=== PATIENT | female | born 1990 | race African-American/Black ===

== ENCOUNTER 2018-02-10 16:20 | Emergency (ER) | payer MEDICARE, MEDICAID ==
[2018-02-10 16:54] VITALS: BP 129/82
--- NOTE | 2018-02-10 16:55 | ER Document Report ---
ED General - General Chief Complaint: Psych Problem Stated Complaint: PSYCH PROBLEM Time Seen by Provider: 02/10/18 16:44 Notes: 27-year-old female here with mother who states she has been out of her Cymbalta 60 mg and Ambien 10 mg for the past 2-3 weeks. She has had some recent deaths in the family and has been unable to sleep due to these deaths. She has also been unable to sleep due to being out of her medications. She does not have any physical complaints. She denies any SI HI hallucinations. Mother states they have been trying to get up with her PCP Dr. Elena however "he is never in the office"so they came here instead. TRAVEL OUTSIDE OF THE [place] IN LAST 30 DAYS: No - Related Data Allergies/Adverse Reactions: No Known Allergies Allergy (Verified 02/10/18 16:22) Past Medical History - Social History Smoking Status: Unknown if Ever Smoked Family History: None, Arthritis, DM, Hypertension, Malignancy Pulmonary Medical History: Reports: Hx Asthma, Hx Pneumonia Neurological Medical History: Reports: Hx Migraine Musculoskeltal Medical History: Reports Hx Arthritis, Reports Hx Musculoskeletal Trauma Psychiatric Medical History: Reports: Hx Anxiety, Hx Bipolar Disorder, Hx Depression - Immunizations Hx Diphtheria, Pertussis, Tetanus Vaccination: Yes Review of Systems - Review of Systems Notes: See history of present illness for pertinent positive review of systems; otherwise all review of systems have been reviewed and are negative Physical Exam - Vital signs Vitals: Temp Pulse Resp BP Pulse Ox 99.3 F 92 20 129/82 H 99 02/10/18 16:24 02/10/18 16:24 02/10/18 16:24 02/10/18 16:24 02/10/18 16:24 - Notes Notes: PHYSICAL EXAMINATION: GENERAL: Well-appearing and in no acute distress. HEAD: Atraumatic, normocephalic. EYES: Pupils equal round and reactive to light, extraocular movements intact, sclera anicteric, conjunctiva are normal. ENT: nares patent, oropharynx clear without exudates. Moist mucous membranes. NECK: Normal range of motion, supple without lymphadenopathy LUNGS: CTAB and equal. No wheezes rales or rhonchi. HEART: Regular rate and rhythm without murmurs ABDOMEN: Soft, no tenderness. No facial grimacing/wincing upon palpation. No guarding, no rebound. EXTREMITIES: Normal range of motion, no pitting edema. No cyanosis. NEUROLOGICAL: Cranial nerves grossly intact. Normal sensory/motor exams. PSYCH: Normal mood, normal affect. No SI HI hallucinations SKIN: Warm, Dry, normal turgor, no rashes or lesions noted Course - Re-evaluation Re-evalutation: 02/10/18 16:54 MEDICAL DECISION MAKING: The patient has received a medical screening exam There is no emergency medical condition identified today We will give a 7 day refill for her Cymbalta and Ambien Instructed follow-up PCP next day or few few days Patient/mother understands and agrees to the plan of care - Vital Signs Vital signs: Temp Pulse Resp BP Pulse Ox 99.3 F 92 20 129/82 H 99 02/10/18 16:24 02/10/18 16:24 02/10/18 16:24 02/10/18 16:24 02/10/18 16:24 Discharge - Discharge Clinical Impression: Medication refill Condition: Good Disposition: HOME, SELF-CARE Additional Instructions: You were seen in the emergency department at [facility]. You received a seven-day refill of her medications. You will need to see the PCP for further extended refills. If you were given any sedating medications, such as Ambien and Cymbalta, be sure not to operate heavy machinery (example - driving) and be sure you are not too sedated to walk appropriately. Please followup with your primary physician in the next few days for further management /evaluation. Please return to the emergency department for worsening of symptoms or any symptom that you deem to be concerning or life-threatening. Thank you for allowing us to be part of your care. Prescriptions: Zolpidem Tartrate [Ambien] 10 mg PO QHS #7 tablet Duloxetine HCl [Cymbalta] 60 mg PO DAILY #7 capsule.dr Referrals: MACARENA ELENA MD [Primary Care Provider] - Follow up in 3-5 days
== END 2018-02-10 16:55 | disposition home or self-care (01) ==
LOC: ER 16:20
DX: F99 Mental disorder, not otherwise specified (principal)
CPT/HCPCS: 99283

== ENCOUNTER 2018-07-21 12:07 | Emergency (ER) | payer MEDICARE, MEDICAID ==
--- NOTE | 2018-07-21 12:22 | ER Document Report ---
ED GI/ - General Chief Complaint: Vaginal Bleeding Stated Complaint: VAGINAL BLEEDING Time Seen by Provider: 07/21/18 12:20 Information source: Patient Notes: Chief complaint: Spotting History of complain:( obtained from----patient) 28 years old female never been before had regular menstrual cycle comes on around the 18th of the month. Had a last. June 16. Presents today with vaginal spotting since July 10. No profuse bleeding. Does not appear like a regular menstrual cycle for her. Denies any abdominal pain nausea vomiting or other constitutional symptoms. Onset: As above Duration: As above Severity: Mild to moderate Quality: None Context: Possible Exacerbating factor and relieving factors: None REVIEW OF SYSTEMS: CONSTITUTIONAL : Denies fever, chills, or sweats. Denies recent illness. EENT: Denies eye, ear, throat, or mouth pain or symptoms. Denies nasal or sinus congestion or discharge. Denies throat, tongue, or mouth swelling or difficulty swallowing. CARDIOVASCULAR: Denies chest pain. Denies palpitations or racing or irregular heart beat. Denies ankle edema. RESPIRATORY: Denies cough, cold, or chest congestion. Denies shortness of breath, difficulty breathing, or wheezing. GASTROINTESTINAL: Denies distention. Denies nausea, vomiting, or diarrhea. Denies blood in vomitus, stools, or per rectum. Denies black, tarry stools. Denies constipation. GENITOURINARY: Denies difficulty urinating, painful urination, burning, frequency, blood in urine, or discharge. FEMALE GENITOURINARY: Denies vaginal bleeding, heavy or abnormal periods, irregular periods. Denies vaginal discharge or odor. MUSCULOSKELETAL: Denies back or neck pain or stiffness. Denies joint pain or swelling. SKIN: Denies rash, lesions or sores. HEMATOLOGIC : Denies easy bruising or bleeding. LYMPHATIC: Denies swollen, enlarged glands. NEUROLOGICAL: Denies confusion or altered mental status. Denies passing out or loss of consciousness. Denies dizziness or lightheadedness. Denies headache. Denies weakness or paralysis or loss of use of either side. Denies problems with gait or speech. Denies sensory loss, numbness, or tingling. Denies seizures. PSYCHIATRIC: Denies anxiety or stress. Denies depression, suicidal ideation, or homicidal ideation. ALL OTHER SYSTEMS REVIEWED AND NEGATIVE. PHYSICAL EXAMINATION: GENERAL: Well-appearing, well-nourished and in no acute distress. HEAD: Atraumatic, normocephalic. EYES: Pupils equal round and reactive to light, extraocular movements intact, conjunctiva are normal. ENT: Nares patent, oropharynx clear without exudates. Moist mucous membranes. NECK: Normal range of motion, supple without lymphadenopathy LUNGS: Breath sounds clear to auscultation bilaterally and equal. No wheezes rales or rhonchi. HEART: Regular rate and rhythm without murmurs ABDOMEN: Soft, nontender, nondistended abdomen. No guarding, no rebound. No masses appreciated. Examination of genitals-deferred Musculoskeletal: Normal range of motion, no pitting or edema. No cyanosis. NEUROLOGICAL: Cranial nerves grossly intact. Normal speech, normal gait. Normal sensory, motor exams PSYCH: Normal mood, normal affect. SKIN: Warm, Dry, normal turgor, no rashes or lesions noted. Dictation was performed using [employer] voice recognition software TRAVEL OUTSIDE OF THE [place] IN LAST 30 DAYS: No - HPI Notes: 07/21/18 12:22 Dictated - Related Data Allergies/Adverse Reactions: No Known Allergies Allergy (Verified 07/21/18 12:09) Past Medical History - Social History Smoking Status: Current Every Day Smoker Cigarette use (# per day): No Smoking Education Provided: Yes Frequency of alcohol use: Rare Drug Abuse: None Lives with: Family Family History: None, Arthritis, DM, Hypertension, Malignancy Pulmonary Medical History: Reports: Hx Asthma, Hx Pneumonia Neurological Medical History: Reports: Hx Migraine Renal/ Medical History: Denies: Hx Peritoneal Dialysis Musculoskeletal Medical History: Reports Hx Arthritis, Reports Hx Musculoskeletal Trauma Psychiatric Medical History: Reports: Hx Anxiety, Hx Bipolar Disorder, Hx Depression - Immunizations Hx Diphtheria, Pertussis, Tetanus Vaccination: Yes Review of Systems - Review of Systems Notes: Dictated Physical Exam - Vital signs Vitals: Temp Pulse Resp BP Pulse Ox 98.2 F 101 H 16 130/82 H 99 07/21/18 12:11 07/21/18 12:11 07/21/18 12:11 07/21/18 12:11 07/21/18 12:11 - Notes Notes: Dictated Course - Re-evaluation Re-evalutation: 07/21/18 12:22 Dictated - Vital Signs Vital signs: Temp Pulse Resp BP Pulse Ox 98.2 F 101 H 16 130/82 H 99 07/21/18 12:11 07/21/18 12:11 07/21/18 12:11 07/21/18 12:11 07/21/18 12:11 Discharge - Discharge Referrals: MACARENA BRAVO MD [Primary Care Provider] - Follow up as needed
--- NOTE | 2018-07-21 12:43 | ER Document Report ---
ED General - General Chief Complaint: Vaginal Bleeding Stated Complaint: VAGINAL BLEEDING Time Seen by Provider: 07/21/18 12:20 Mode of Arrival: Ambulatory Information source: Patient Notes: 28-year-old female with depression presents via private vehicle with complaint of vaginal bleeding. Patient states that she has had vaginal bleeding for approximately 2 weeks. She denies any associated abdominal pain, vaginal discharge. She states that she goes through approximately 1 pad per day. She denies prior similar symptoms. She denies fever, chills, nausea, vomiting. She did state that she had one episode of diarrhea this morning. Patient's last normal period was June 16. She is sexually active but states that she uses condoms every time. She does not believe that she is currently. She is not passing clots. She denies any dizziness, shortness of breath, history of anemia. TRAVEL OUTSIDE OF THE [place] IN LAST 30 DAYS: No - HPI Onset: Other Onset/Duration: Persistent Quality of pain: No pain Severity: Mild Associated symptoms: denies: Chest pain, Fever, Nausea, Vomiting, Shortness of breath Exacerbated by: Denies Relieved by: Denies Similar symptoms previously: No Recently seen / treated by doctor: No - Related Data Allergies/Adverse Reactions: No Known Allergies Allergy (Verified 07/21/18 12:09) Past Medical History - General Information source: Patient - Social History Smoking Status: Current Every Day Smoker Cigarette use (# per day): Yes - 20 Smoking Education Provided: Yes - Smoking cessation counseling was provided for 4 minutes at the bedside Frequency of alcohol use: Rare Drug Abuse: None Lives with: Family Family History: None, Arthritis, DM, Hypertension, Malignancy Patient has suicidal ideation: No Patient has homicidal ideation: No Pulmonary Medical History: Reports: Hx Asthma, Hx Pneumonia Neurological Medical History: Reports: Hx Migraine Renal/ Medical History: Denies: Hx Peritoneal Dialysis Musculoskeletal Medical History: Reports Hx Arthritis, Reports Hx Musculoskeletal Trauma Psychiatric Medical History: Reports: Hx Anxiety, Hx Bipolar Disorder, Hx Depression - Immunizations Hx Diphtheria, Pertussis, Tetanus Vaccination: Yes Review of Systems - Review of Systems Notes: REVIEW OF SYSTEMS: CONSTITUTIONAL : Denies fever, chills, or sweats. Denies recent illness. Denies weight loss, recent hospitalizations. EENT: Denies visual changes, eye pain. Denies sore throat, oral lesions, difficulty swallowing. CARDIOVASCULAR: Denies chest pain. Denies palpitations. Denies lower extremity edema. RESPIRATORY: Denies cough. Denies shortness of breath, wheezing. GASTROINTESTINAL: Denies abdominal pain or distention. Denies nausea, vomiting , or diarrhea. Denies blood in vomitus, stools, or per rectum. Denies black, tarry stools. Denies constipation. GENITOURINARY: Denies difficulty urinating, painful urination, frequency, blood in urine, or vaginal discharge. MUSCULOSKELETAL: Denies back or neck pain or stiffness. Denies joint pain or swelling. SKIN: Denies rash, lesions or sores. HEMATOLOGIC : Denies easy bruising or bleeding. LYMPHATIC: Denies swollen glands. NEUROLOGICAL: Denies confusion or altered mental status. Denies loss of consciousness. Denies dizziness or lightheadedness. Denies headache. Denies weakness or paralysis. Denies problems difficulty with ambulation, slurred speech. Denies sensory loss, numbness, or tingling. Denies seizures. PSYCHIATRIC: Denies anxiety or stress. Denies depression, suicidal ideation, or homicidal ideation. Denies visual or auditory hallucinations. Physical Exam - Vital signs Vitals: Temp Pulse Resp BP Pulse Ox 98.2 F 101 H 16 130/82 H 99 07/21/18 12:11 07/21/18 12:11 07/21/18 12:11 07/21/18 12:11 07/21/18 12:11 - Notes Notes: PHYSICAL EXAMINATION: GENERAL: Well-appearing, well-nourished and in no acute distress. HEAD: Atraumatic, normocephalic. EYES: Pupils equal round and reactive to light, extraocular movements intact, conjunctiva are normal. ENT: Nares patent, oropharynx clear without exudates. Moist mucous membranes. NECK: Normal range of motion, supple without lymphadenopathy LUNGS: Breath sounds clear to auscultation bilaterally and equal. No wheezes rales or rhonchi. HEART: Regular rate and rhythm without murmurs ABDOMEN: Soft, nontender, nondistended abdomen. No guarding, no rebound. No masses appreciated. Female : Pelvic exam; External genitalia unremarkable. Speculum exam with no discharge. Scant vaginal bleeding. Vaginal wall unremarkable. Os closed. No cervical motion tenderness. No adnexal tenderness or masses appreciated. Swabs obtained for gonorrhea, chlamydia and wet prep. Musculoskeletal: Normal range of motion, no pitting or edema. No cyanosis. NEUROLOGICAL: Cranial nerves grossly intact. Normal speech, normal gait. Normal sensory, motor exams PSYCH: Normal mood, normal affect. SKIN: Warm, Dry, normal turgor, no rashes or lesions noted. Course - Re-evaluation Re-evalutation: Laboratory 07/21/18 07/21/18 07/21/18 12:25 13:13 14:22 WBC 7.0 RBC 4.60 Hgb 13.4 Hct 39.7 MCV 86 MCH 29.0 MCHC 33.6 RDW 15.3 H Plt Count 326 Seg Neutrophils % 61.4 Lymphocytes % 27.4 Monocytes % 7.7 Eosinophils % 2.4 Basophils % 1.1 Absolute Neutrophils 4.3 Absolute Lymphocytes 1.9 Absolute Monocytes 0.5 Absolute Eosinophils 0.2 Absolute Basophils 0.1 Urine Color YELLOW Urine Appearance SLIGHTLY-CLOUDY Urine pH 5.0 Ur Specific [place] 1.025 Urine Protein NEGATIVE Urine Glucose (UA) NEGATIVE Urine Ketones NEGATIVE Urine Blood SMALL H Urine Nitrite NEGATIVE Urine Bilirubin NEGATIVE Urine Urobilinogen NEGATIVE Ur Leukocyte Esterase NEGATIVE Urine WBC (Auto) 0 Urine RBC (Auto) 0 Squamous Epi Cells Auto 2 Urine Mucus (Auto) RARE Urine Ascorbic Acid NEGATIVE Urine HCG, Qual NEGATIVE Trichomonas (Wet Prep) NO TRICHOMONAS SEEN Vaginal WBC 2+ WBCS SEEN Vaginal RBC 3+ RBCS SEEN Vaginal Yeast NO YEAST SEEN 28-year-old female presents with complaint of vaginal bleeding that has been ongoing for 2 weeks. Denies heavy vaginal bleeding, passage of clots. States she is going through approximately 1 pad per day. Denies any associated abdominal pain. She denies dizziness, shortness of breath, history of anemia. Vital signs stable. Patient afebrile, normotensive and not tachycardic. Patient has a benign exam. Pelvic exam shows scant vaginal bleeding, no cervical motion tenderness. Swabs obtained and negative for trichomonas, bacterial vaginosis. Gonorrhea and chlamydia pending. Urinalysis not consistent with urinary tract infection. CBC shows no anemia. HCG is negative. Patient was provided a prescription for control pills. She was advised that if she continues bleeding that she should take them. Patient anxious to be discharged. She does not wish to wait for the rest of her results. Patient discharged home in stable condition. 07/21/18 14:24 Patient requesting discharge prior to final results. I did obtain the patient' s phone number and told her that if any of the swabs come back positive I will call her later today. 07/21/18 15:10 07/21/18 15:11 - Vital Signs Vital signs: Temp Pulse Resp BP Pulse Ox 98.7 F 82 16 121/77 100 07/21/18 14:50 07/21/18 14:50 07/21/18 14:50 07/21/18 14:50 07/21/18 14:50 - Laboratory Result Diagrams: 07/21/18 13:13 Laboratory results interpreted by me: 07/21/18 07/21/18 12:25 13:13 RDW 15.3 H Urine Blood SMALL H Discharge - Discharge Clinical Impression: Dysfunctional uterine bleeding, Abnormal vaginal bleeding Condition: Good Disposition: HOME, SELF-CARE Instructions: Vaginal Bleeding ([facility]) Additional Instructions: You were seen today for dysfunctional uterine bleeding. This is when you have vaginal bleeding and abdominal cramping off of your normal menstrual cycle. You have been started on control pills to help regulate your cycle and control your symptoms. You need to follow-up with [facility] or your primary care physician the next 1-3 days. Return immediately if you worsening pain, you began bleeding through more than 2 pads per hour for more than 3 hours, you pass out, have persistent vomiting, develop a fever greater than 100.4F, or any other symptoms that are concerning to you. Prescriptions: Naproxen [Naprosyn 250 mg Tablet] 500 mg PO BID PRN #14 tablet PRN Reason: Abdominal Cramping Norgestimate-Ethinyl Estradiol [Ortho Tri-Cyclen Lo Tablet] 1 each PO DAILY #1 packet Referrals: MACARENA BRAVO MD [ACTIVE STAFF] - Follow up in 3-5 days
[2018-07-21 13:23] LABS: ABSOLUTE BASOPHILS # (AUTO) 0.1 10^3/uL (0.0-0.2); ABSOLUTE EOSINOPHILS # (AUTO) 0.2 10^3/uL (0.0-0.6); ABSOLUTE LYMPHOCYTES (AUTO) 1.9 10^3/uL (0.5-4.7); ABSOLUTE MONOCYTES (AUTO) 0.5 10^3/uL (0.1-1.4); ABSOLUTE NEUT (AUTO) 4.3 10^3/uL (1.7-8.2); BASOPHILS % (AUTO) 1.1 % (0-2); EOSINOPHILS % (AUTO) 2.4 % (0-6); HEMATOCRIT 39.7 % (36.0-47.0); HEMOGLOBIN 13.4 g/dL (12.0-15.5); LYMPHOCYTES % (AUTO) 27.4 % (13-45); MEAN CORPUSCULAR HGB CONC 33.6 g/dL (32.0-36.0); MEAN CORPUSCULAR VOLUME 86 fl (80-97); MONOCYTES % (AUTO) 7.7 % (3-13); PLATELET COUNT 326 10^3/uL (150-450); RED CELL DISTRIBUTION WIDTH 15.3 % (11.5-14.0); SEGMENTED NEUTROPHILS % (AUTO) 61.4 % (42-78); TOTAL CELLS COUNTED % (AUTO) 100 %
[2018-07-21 13:29] LABS: APPEARANCE,URINE SLIGHTLY-CLOUDY; BILIRUBIN,URINE NEGATIVE (NEGATIVE); COLOR,URINE YELLOW; GLUCOSE, URINE NEGATIVE (NEGATIVE); KETONES,URINE NEGATIVE (NEGATIVE); LEUKOCYTE ESTERASE,URINE NEGATIVE (NEGATIVE); NITRITE,URINE NEGATIVE (NEGATIVE); PROTEIN,URINE NEGATIVE (NEGATIVE); URINE SPECIFIC GRAVITY 1.025; UROBILINOGEN,URINE NEGATIVE mg/dL (<2.0)
[2018-07-21 14:40] LABS: RBCS (WET MOUNT) 3+ RBCS SEEN; T.VAGINALIS (WET MOUNT) NO TRICHOMONAS SEEN; WBCS (WET MOUNT) 2+ WBCS SEEN; YEAST (WET MOUNT) NO YEAST SEEN
[2018-07-21 14:51] VITALS: BP 121/77
[2018-07-21 16:04] LABS: CHLAM PCR NOT DETECTED (NOT DETECT); GON PCR NOT DETECTED (NOT DETECT)
== END 2018-07-21 15:40 | disposition home or self-care (01) ==
LOC: ER 12:07
DX: N93.8 Other specified abnormal uterine and vaginal bleeding (principal); R19.7 Diarrhea, unspecified; J45.909 Unspecified asthma, uncomplicated; F17.210 Nicotine dependence, cigarettes, uncomplicated; Z71.6 Tobacco abuse counseling
CPT/HCPCS: 36415; 81001; 81025; 85025; 87210; 87491; 87591; 99284; 99406

== ENCOUNTER 2019-09-24 19:37 | Emergency (ER) | payer MEDICARE, MEDICAID ==
[2019-09-24] MEDS ORDERED: IBUPROFEN 800 MG TABLET PO ONE (21:36)
--- NOTE | 2019-09-24 21:38 | ER Document Report ---
ED Medical Screen (RME) - General Chief Complaint: Chest Congestion Stated Complaint: FLU SYMPTOMS Time Seen by Provider: 09/24/19 21:33 Mode of Arrival: Ambulatory Information source: Patient Notes: 29-year-old female presents emergency department with complaints of cold symptoms cough congestion runny eyes fever body aches sore throat for the past 4 days with intermittent nausea vomiting diarrhea. She did not receive her flu vaccine this year. Unknown exposure to strep. Patient reports that she gets pneumonia on a regular yearly basis. I have greeted and performed a rapid initial assessment of this patient. A comprehensive ED assessment and evaluation of the patient, analysis of test results and completion of the medical decision making process will be conducted by additional ED providers. TRAVEL OUTSIDE OF THE [place] IN LAST 30 DAYS: No - Related Data Allergies/Adverse Reactions: No Known Allergies Allergy (Verified 07/21/18 12:09) Past Medical History Pulmonary Medical History: Reports: Hx Asthma, Hx Pneumonia Neurological Medical History: Reports: Hx Migraine Renal/ Medical History: Denies: Hx Peritoneal Dialysis Musculoskeltal Medical History: Reports Hx Arthritis, Reports Hx Musculoskeletal Trauma Psychiatric Medical History: Reports: Hx Anxiety, Hx Bipolar Disorder, Hx Depression - Immunizations Hx Diphtheria, Pertussis, Tetanus Vaccination: Yes Physical Exam - Vital signs Vitals: Temp Pulse Resp BP Pulse Ox 100.8 F H 88 20 152/112 H 100 09/24/19 19:41 09/24/19 19:41 09/24/19 19:41 09/24/19 19:41 09/24/19 19:41 Course - Vital Signs Vital signs: Temp Pulse Resp BP Pulse Ox 100.8 F H 88 20 145/85 H 100 09/24/19 19:41 09/24/19 19:41 09/24/19 19:41 09/24/19 20:58 09/24/19 19:41
[2019-09-24 22:38] LABS: A TYPE INFLUENZA AG NEGATIVE (NEGATIVE); B INFLUENZA AG NEGATIVE (NEGATIVE)
[2019-09-24] MEDS ORDERED: CIPROFLOXACIN HCL/DEXAMETH OTIC DROP 7.5 ML AU ONE (23:52)
[2019-09-24] MEDS ORDERED: AMOXICILLIN TRIHYDRATE 500 MG CAPSULE PO ONE (23:52)
[2019-09-24] MEDS ORDERED: BENZONATATE 100 MG CAPSULE PO ONE (23:52)
--- NOTE | 2019-09-24 23:58 | ER Document Report ---
HPI - HPI Time Seen by Provider: 09/24/19 21:33 Pain Level: 5 Context: Patient is a 29-year-old female who presents to the emergency department with a chief complaint of cold symptoms, cough, runny nose, bilateral ear pain, and bilateral ear drainage. Patient states that her symptoms started 2 days ago. Patient was recently exposed to someone who had the flu. Patient did not receive the flu vaccine this year. - CONSTITUTIONAL Constitutional: DENIES: Fever, Chills - NEURO Neurology: REPORTS: Headache - CARDIOVASCULAR Cardiovascular: DENIES: Chest pain - RESPIRATORY Respiratory: REPORTS: Coughing - REPRODUCTIVE Reproductive: DENIES: : - MUSCULOSKELETAL Musculoskeletal: DENIES: Extremity pain - DERM Skin Color: Normal Skin Problems: None Past Medical History - General Information source: Patient - Social History Smoking Status: Unknown if Ever Smoked Family History: None, Arthritis, DM, Hypertension, Malignancy Patient has suicidal ideation: No Patient has homicidal ideation: No Pulmonary Medical History: Reports: Hx Asthma, Hx Pneumonia Neurological Medical History: Reports: Hx Migraine Renal/ Medical History: Denies: Hx Peritoneal Dialysis Musculoskeletal Medical History: Reports Hx Arthritis, Reports Hx Musculoskeletal Trauma Psychiatric Medical History: Reports: Hx Anxiety, Hx Bipolar Disorder, Hx Depression - Immunizations Hx Diphtheria, Pertussis, Tetanus Vaccination: Yes Vertical Provider Document - CONSTITUTIONAL Agree With Documented VS: Yes Exam Limitations: No Limitations General Appearance: No Apparent Distress - INFECTION CONTROL TRAVEL OUTSIDE OF THE [place] IN LAST 30 DAYS: No - HEENT HEENT: Atraumatic, Pharyngeal Tenderness, Pharyngeal Erythema, Tympanic Membrane Red - Bilateral, Tympanic Membrane Bulging - Left. negative: Pharyngeal Exudate Notes: Edema and erythema noted to external auditory canals - NECK Neck: Normal Inspection - RESPIRATORY Respiratory: Breath Sounds Normal, No Respiratory Distress - CARDIOVASCULAR Cardiovascular: Regular Rate, Regular Rhythm Pulses: Normal: Radial - GI/ABDOMEN Gastrointestinal: Abdomen Soft - MUSCULOSKELETAL/EXTREMETIES Musculoskeletal/Extremeties: FROM - NEURO Level of Consciousness: Awake, Alert, Appropriate Motor/Sensory: No Motor Deficit, No Sensory Deficit - DERM Integumentary: Warm, Dry, No Rash Course - Re-evaluation Re-evalutation: 09/24/19 23:54 Patient's physical exam is consistent with otitis media. She will be placed on amoxicillin. She will also follow-up with primary care provider regards to this visit. No mastoid tenderness noted. I have very low suspicion for mastoiditis. She will also be sent home with [address] to help with her cough. Chest x-ray is not back, but amoxicillin will cover for any pneumonia. Follow-up precautions were given. Verbal discharge instructions were given to the patient. They verbalized understanding. They are stable for discharge. - Vital Signs Vital signs: Temp Pulse Resp BP Pulse Ox 100.8 F H 88 20 145/85 H 100 09/24/19 19:41 09/24/19 19:41 09/24/19 19:41 09/24/19 20:58 09/24/19 19:41 Discharge - Discharge Clinical Impression: Otitis media Qualifiers: Otitis media type: suppurative Chronicity: acute Laterality: bilateral Recurrence: not specified as recurrent Spontaneous tympanic membrane rupture: without spontaneous rupture Qualified Code(s): H66.003 - Acute suppurative otitis media without spontaneous rupture of ear drum, bilateral Otitis externa Qualifiers: Otitis externa type: unspecified type Chronicity: acute Laterality: bilateral Qualified Code(s): H60.503 - Unspecified acute noninfective otitis externa, bilateral Condition: Stable Disposition: HOME, SELF-CARE Instructions: Use of Ear Drops ([facility]), Otitis Externa ([facility]) Additional Instructions: You were seen today for ear pain and have an acute ear infection. Please take the antibiotic that has been prescribed until it is completed even if you are feeling better before you have finished all the antibiotics. For your pain: Take ibuprofen 600 mg and acetaminophen 1000 mg every 6 hours together as needed for pain. Return if you have worsening of your pain, loss of hearing in the affected ear, worsening facial pain, headaches, pass out, or any other symptoms that are worrisome to you. You also have otitis externa, which is an outer ear infection. Place 4 drops of the Ciprodex drop to both ears twice a day for [address] the drops in one ear, wait 10 minutes and then put the drops in the other ear and wait 10 minutes. Prescriptions: Benzonatate [Tessalon Perles 100 mg Capsule] 200 mg PO Q8HP PRN #40 capsule PRN Reason: Amoxicillin Trihydrate [Amoxil 875 mg Tablet] 1 tab PO BID #20 tablet
[2019-09-25 00:26] VITALS: BP 140/82
[2019-09-25] MEDS ORDERED: ACETAMINOPHEN 325 MG TABLET PO ONE (00:32)
--- NOTE | 2019-09-25 03:29 | RADIOLOGY REPORT (SQ) ---
EXAM DESCRIPTION: X-RAY CHEST TWO VIEWS CLINICAL HISTORY: 29 years Female COUGH, FEVER COMPARISON: 08/06/2016 TECHNIQUE: PA and lateral chest x-rays at 2234 hours on 09/24/2019. FINDINGS: The lungs are mildly hypoinflated. There is airspace consolidation in the posterior basal segment of the right lower lobe and a small infiltrate in the caudal right middle lobe with both partially silhouetting the right hemidiaphragm. The pattern of infiltrate is different than that seen on the older exam. There is a probable small patchy infiltrate in the left lower lobe. The costophrenic sulci are sharp. The heart is normal in size with normal pulmonary vascularity. No acute bony abnormalities are seen. IMPRESSION: Right lower lobe, right middle lobe and probable left lower lobe pneumonia.
== END 2019-09-25 00:38 | disposition home or self-care (01) ==
LOC: ER 19:37
DX: H66.003 Acute suppurative otitis media without spontaneous rupture of ear drum, bilateral (principal); H60.503 Unspecified acute noninfective otitis externa, bilateral; R05 Cough; R09.89 Other specified symptoms and signs involving the circulatory and respiratory systems; R51 Headache; J45.909 Unspecified asthma, uncomplicated; Z87.01 Personal history of pneumonia (recurrent); Z20.828 Contact with and (suspected) exposure to other viral communicable diseases
CPT/HCPCS: 99283; 87070; 87880; 87804; 71046; A9270 ×5; J3490

== ENCOUNTER 2019-11-14 23:36 | Emergency (ER) | payer MEDICARE, MEDICAID ==
--- NOTE | 2019-11-15 00:06 | ER Document Report ---
ED Medical Screen (RME) - General Chief Complaint: Cough Stated Complaint: COUGH,SHORTNESS OF BREATH Time Seen by Provider: 11/15/19 00:03 Mode of Arrival: Ambulatory Information source: Patient Notes: 29-year-old female with history of pneumonia presents emergency department with complaints of stuffy runny nose cough shortness of breath for the past 3 days. Unsure of fever. Denies nausea vomiting diarrhea. Has not received a flu vaccine. Has not been around anybody with possible coronavirus. No recent travel. She reports she feels like she has pneumonia. I have greeted and performed a rapid initial assessment of this patient. A comprehensive ED assessment and evaluation of the patient, analysis of test results and completion of the medical decision making process will be conducted by additional ED providers. TRAVEL OUTSIDE OF THE [place] IN LAST 30 DAYS: No - Related Data Allergies/Adverse Reactions: No Known Allergies Allergy (Verified 07/21/18 12:09) Past Medical History Pulmonary Medical History: Reports: Hx Asthma, Hx Pneumonia Neurological Medical History: Reports: Hx Migraine Renal/ Medical History: Denies: Hx Peritoneal Dialysis Musculoskeltal Medical History: Reports Hx Arthritis, Reports Hx Musculoskeletal Trauma Psychiatric Medical History: Reports: Hx Anxiety, Hx Bipolar Disorder, Hx Depression - Immunizations Hx Diphtheria, Pertussis, Tetanus Vaccination: Yes Physical Exam - Vital signs Vitals: Temp Pulse Resp BP Pulse Ox 99.7 F 104 H 18 123/78 99 11/14/19 23:49 11/14/19 23:49 11/14/19 23:49 11/14/19 23:49 11/14/19 23:49 Course - Vital Signs Vital signs: Temp Pulse Resp BP Pulse Ox 99.7 F 104 H 18 123/78 99 11/14/19 23:49 11/14/19 23:49 11/14/19 23:49 11/14/19 23:49 11/14/19 23:49
--- NOTE | 2019-11-15 01:07 | RADIOLOGY REPORT (SQ) ---
EXAM DESCRIPTION: XR CHEST 2 VIEWS COMPLETED DATE/TME: 11/15/2019 00:06 CLINICAL HISTORY: cough sob COMPARISON: 08/06/2016 FINDINGS: Frontal and lateral views of the chest. Cardiomediastinal silhouette: Normal size and contour. Lungs: No consolidation, pneumothorax, or pleural effusion. Bones: No acute osseous abnormality. Upper abdomen: No abnormality identified. IMPRESSION: 1. No acute pulmonary process identified.
[2019-11-15 01:40] LABS: ABSOLUTE EOSINOPHILS # (AUTO) 0.1 10^3/uL (0.0-0.6); ABSOLUTE MONOCYTES (AUTO) 0.5 10^3/uL (0.1-1.4); ABSOLUTE NEUT (AUTO) 4.1 10^3/uL (1.7-8.2); BASOPHILS % (AUTO) 0.8 % (0-2); EOSINOPHILS % (AUTO) 2.2 % (0-6); HEMATOCRIT 36.6 % (36.0-47.0); HEMOGLOBIN 12.4 g/dL (12.0-15.5); LYMPHOCYTES % (AUTO) 16.6 % (13-45); MEAN CORPUSCULAR HEMOGLOBIN 29.5 pg (27.0-33.4); MEAN CORPUSCULAR HGB CONC 33.7 g/dL (32.0-36.0); MEAN CORPUSCULAR VOLUME 87 fl (80-97); MONOCYTES % (AUTO) 8.5 % (3-13); PLATELET COUNT 272 10^3/uL (150-450); RED BLOOD COUNT 4.19 10^6/uL (3.72-5.28); RED CELL DISTRIBUTION WIDTH 14.3 % (11.5-14.0); SEGMENTED NEUTROPHILS % (AUTO) 71.9 % (42-78); TOTAL CELLS COUNTED % (AUTO) 100 %; WHITE BLOOD COUNT 5.7 10^3/uL (4.0-10.5)
[2019-11-15 01:56] LABS: ALBUMIN 4.1 g/dL (3.5-5.0); ALKALINE PHOSPHATASE 62 U/L (38-126); ANION GAP 7 (5-19); ASPARTATE AMINO TRANSFERASE 49 U/L (14-36); BILIRUBIN,TOTAL 0.2 mg/dL (0.2-1.3); BLOOD UREA NITROGEN 6 mg/dL (7-20); CARBON DIOXIDE 24 mmol/L (22-30); CHLORIDE 109 mmol/L (98-107); GLUCOSE 90 mg/dL (75-110); POTASSIUM 4.3 mmol/L (3.6-5.0); TOTAL PROTEIN 7.6 g/dL (6.3-8.2)
[2019-11-15 01:57] LABS: A TYPE INFLUENZA AG NEGATIVE (NEGATIVE); B INFLUENZA AG NEGATIVE (NEGATIVE)
[2019-11-15] MEDS ORDERED: AZITHROMYCIN 250 MG TABLET PO ONE (04:23)
--- NOTE | 2019-11-15 04:29 | ER Document Report ---
ED General - General Chief Complaint: Shortness Of Breath Stated Complaint: COUGH,SHORTNESS OF BREATH Time Seen by Provider: 11/15/19 00:03 Mode of Arrival: Ambulatory Notes: Maddie [employer] note 29-year-old female with history of pneumonia presents emergency department with complaints of stuffy runny nose cough shortness of breath for the past 3 days. Unsure of fever. Denies nausea vomiting diarrhea. Has not received a flu vaccine. Has not been around anybody with possible coronavirus. No recent travel. She reports she feels like she has pneumonia. 29-year-old black female arrives with chief complaint of having 3 days of sore throat stuffy nose white productive phlegm and paroxysmal cough. Patient reports she caught this virus from her young children who are sick for several days but now are well. Patient denies any cephalgia nuchal rigidity back pain abdominal pain chest pain or skin rash blurry vision hematuria hemoptysis but admits to rhinorrhea and nasal congestion TRAVEL OUTSIDE OF THE [place] IN LAST 30 DAYS: No - Related Data Allergies/Adverse Reactions: No Known Allergies Allergy (Verified 07/21/18 12:09) Past Medical History - General Information source: Patient - Social History Smoking Status: Never Smoker Cigarette use (# per day): No Chew tobacco use (# tins/day): No Smoking Education Provided: No Frequency of alcohol use: None Drug Abuse: None Lives with: Family Family History: None, Arthritis, DM, Hypertension, Malignancy Patient has suicidal ideation: No Patient has homicidal ideation: No Pulmonary Medical History: Reports: Hx Asthma, Hx Pneumonia Neurological Medical History: Reports: Hx Migraine Renal/ Medical History: Denies: Hx Peritoneal Dialysis Musculoskeletal Medical History: Reports Hx Arthritis, Reports Hx Musculoskeletal Trauma Psychiatric Medical History: Reports: Hx Anxiety, Hx Bipolar Disorder, Hx Depression - Immunizations Hx Diphtheria, Pertussis, Tetanus Vaccination: Yes Review of Systems - Review of Systems Constitutional: See HPI, Malaise, Weakness, Recent illness EENT: See HPI, Nose congestion, Sinus pressure, Sinus discharge, Throat pain Cardiovascular: No symptoms reported Respiratory: See HPI, Cough, Sputum Gastrointestinal: No symptoms reported Genitourinary: No symptoms reported Female Genitourinary: No symptoms reported Musculoskeletal: No symptoms reported Skin: No symptoms reported Hematologic/Lymphatic: No symptoms reported Neurological/Psychological: No symptoms reported Physical Exam - Vital signs Vitals: Temp Pulse Resp BP Pulse Ox 99.7 F 104 H 18 123/78 99 11/14/19 23:49 11/14/19 23:49 11/14/19 23:49 11/14/19 23:49 11/14/19 23:49 Interpretation: Tachycardic - General General appearance: Alert - HEENT Head: Normocephalic Eyes: Normal Conjunctiva: Normal Cornea: Normal Extraocular movements intact: Yes Eyelashes: Normal Pupils: PERRL Mouth/Lips: Normal Pharynx: Normal Neck: Normal - Respiratory Respiratory status: No respiratory distress Chest status: Nontender Breath sounds: Normal Chest palpation: Normal - Cardiovascular Rhythm: Regular Heart sounds: Normal auscultation Murmur: No Friction rub: No Otis's crunch: No - Abdominal Inspection: Normal Distension: No distension Bowel sounds: Normal Tenderness: Nontender Organomegaly: No organomegaly - Back Back: Normal - Extremities General upper extremity: Normal inspection General lower extremity: Normal inspection - Neurological Neuro grossly intact: Yes Cognition: Normal Orientation: AAOx4 Dewar Coma Scale Eye Opening: Spontaneous Huber Coma Scale Verbal: Oriented Speech: Normal Cranial nerves: Normal Cerebellar coordination: Normal Motor strength normal: LUE, RUE, LLE, RLE - Psychological Associated symptoms: Normal affect - Skin Skin Temperature: Warm Skin Moisture: Dry Course - Vital Signs Vital signs: Temp Pulse Resp BP Pulse Ox 99.7 F 104 H 18 123/78 99 11/14/19 23:49 11/14/19 23:49 11/14/19 23:49 11/14/19 23:49 11/14/19 23:49 - Laboratory Result Diagrams: 11/15/19 01:25 11/15/19 01:25 Laboratory results interpreted by me: 11/15/19 11/15/19 01:25 01:25 RDW 14.3 H Chloride 109 H BUN 6 L AST 49 H ALT 38 H Critical Care Note - Critical Care Note Total time excluding time spent on procedures (mins): 90 Comments: I advised pt of findings ; neg cxr and labs Discharge - Discharge Clinical Impression: URI (upper respiratory infection) Qualifiers: URI type: unspecified URI Qualified Code(s): J06.9 - Acute upper respiratory infection, unspecified Condition: Good Disposition: HOME, SELF-CARE Additional Instructions: Follow-up with personal doctor return to ER as needed take medicines as directed encourage fluids like chamomile tea and try to avoid people who are immunocompromised or elderly Prescriptions: Hydrocodone Bit/Homatropine [Hycodan Syrup 5-1.5 mg/5 ml Ud Cup] 5 ml PO Q4HP PRN #120 ml PRN Reason: Azithromycin [Zithromax 250 mg Tablet] 250 mg PO ASDIR PRN #6 tablet PRN Reason: Forms: Return to Work
[2019-11-15 05:25] VITALS: BP 146/77
== END 2019-11-15 05:24 | disposition home or self-care (01) ==
LOC: ER 23:36
DX: J06.9 Acute upper respiratory infection, unspecified (principal)
CPT/HCPCS: 99285; 36415; 84703; 85025; 80053; 87804; 71046; A9270